=== PATIENT | female | born 1980 | race Two or more races ===

== ENCOUNTER 2023-06-22 02:02 | Emergency (ER) | payer MEDICAID, OTHER ==
[~2023-06-22] VITALS: Ht 165.1 cm; Wt 56.8 kg
[2023-06-22] MEDS: SODIUM CHLORIDE 0.9% 1,000 ML IV ONE (02:41)
[2023-06-22 02:45] VITALS: BP 104/73; RESP 14
[2023-06-22 02:48] LABS: Basophils # (auto) 0 10 ^3/uL (0-0.2); Basophils % (auto) 0.9 % (0.0-2.0); Eosinophils # (auto) 0.1 10 ^3/uL (0-0.8); Eosinophils % (auto) 2.5 % (0.0-7.0); Hematocrit 37.5 % (36.0-46.0); Hemoglobin 12.3 g/dL (12.2-16.2); Lymphocytes # (auto) 1.5 10 ^3/uL (0.4-5.4); Lymphocytes % (auto) 33.5 % (10.0-50.0); Mean Corpuscular Hgb Conc. 32.9 g/dL (32.0-36.0); Mean Corpuscular Volume 85.3 fL (80.0-100.0); Monocytes # (auto) 0.5 10 ^3/uL (0-1.3); Monocytes % (auto) 10.6 % (0.0-12.0); Neutrophils # (auto) 2.4 10 ^3/uL (1.6-8.6); Neutrophils % (auto) 52.5 % (37.0-80.0); White Blood Cell 4.6 10^3/uL (4.4-10.8)
[2023-06-22 02:52] VITALS: PULSE 72; O2SAT 99
[2023-06-22 02:57] LABS: Chloride 109 mmol/L (98-107); Potassium 3.3 mmol/L (3.5-5.1); Sodium 141 mmol/L (136-145)
[2023-06-22 02:58] LABS: Anion Gap 7 (5-15); Calcium 8.7 mg/dL (8.7-10.4); Carbon Dioxide 25 mmol/L (20-30)
[2023-06-22 03:03] LABS: BUN/Creatinine Ratio 10.3 (10.0-20.0); Blood Urea Nitrogen 6 mg/dL (9-23); Glucose 94 mg/dL (74-106)
== END 2023-06-22 03:50 | disposition home or self-care (01) ==
LOC: EDBD 02:02 → ER 02:02
DX: R55 Syncope and collapse (principal); R10.2 Pelvic and perineal pain; I95.9 Hypotension, unspecified; R42 Dizziness and giddiness; Z86.73 Personal history of transient ischemic attack (TIA), and cerebral infarction without residual deficits
CPT/HCPCS: 36415; 80048; 84702; 85025; 93005; 96360; 99284; J7030

== ENCOUNTER 2023-11-19 12:56 | Emergency (ER) | payer MEDICAID ==
[~2023-11-19] VITALS: Ht 165.1 cm; Wt 94.3 kg
[2023-11-19 13:21] VITALS: BP 121/76; PULSE 100; RESP 17; O2SAT 97
[2023-11-19] MEDS: TETANUS-DIPTH-ACEL PERTUSSIS 0.5ML SYR Tdap IM ONE (14:25)
== END 2023-11-19 14:32 | disposition home or self-care (01) ==
LOC: ER 12:56
DX: S01.112A Laceration without foreign body of left eyelid and periocular area, initial encounter (principal); Z86.73 Personal history of transient ischemic attack (TIA), and cerebral infarction without residual deficits; W10.8XXA Fall (on) (from) other stairs and steps, initial encounter; Y93.89 Activity, other specified; Y92.89 Other specified places as the place of occurrence of the external cause; Y99.8 Other external cause status
CPT/HCPCS: 12011; 90471; 90715

== ENCOUNTER 2023-11-26 08:32 | Emergency (ER) | payer MEDICAID ==
[~2023-11-26] VITALS: Ht 154.9 cm; Wt 59.6 kg
[2023-11-26 09:24] VITALS: BP 119/74; PULSE 91; RESP 17; TEMP 97.4; O2SAT 97
== END 2023-11-26 09:36 | disposition home or self-care (01) ==
LOC: ER 08:32
DX: S01.112D Laceration without foreign body of left eyelid and periocular area, subsequent encounter (principal); Z86.73 Personal history of transient ischemic attack (TIA), and cerebral infarction without residual deficits

== ENCOUNTER 2024-02-12 13:43 | Emergency (ER) | payer MEDICAID ==
[~2024-02-12] VITALS: Ht 165.1 cm; Wt 56.0 kg
--- NOTE | 2024-02-12 16:04 | ED.PDOC ---
HPI Comments A 43 YEAR OLD FEMALE PRESENTS TO THE ED WITH COMPLAINT OF LACERATION OF RIGHT THUMB. PATIENT STATES SHE WAS CUTTING VEGETABLES EARLIER TODAY AND SHE ACCIDENTALLY CUT HER RIGHT THUMB. BLEEDING IS CONTROLLED AT THIS TIME. PATIENT DENIES FEVER, CHILLS, SHORTNESS OF BREATH, CHEST PAIN, ABDOMINAL PAIN, NAUSEA, VOMITING, HEADACHE, OR OTHER COMPLAINTS. NO OTHER SYMPTOMS OR MODIFYING FACTORS AT THIS TIME. PATIENT IS ALERT, ORIENTED X 4, AND HAS STEADY GAIT. Chief Complaint: Laceration Time Seen by MD: 13:49 Primary Care Provider: UNKNOWN Reviewed Notes: Nurses Notes, Medications, Allergies Allergies: Coded Allergies: NO KNOWN ALLERGIES (Unverified , 06/22/23) Information Source: Patient Mode of Arrival: Ambulatory Severity: Moderate Severity of Laceration: Controlled Bleeding Complexity: Simple Timing: Hours Prehospital treatment: None Laceration Location: Digit #1 (RIGHT THUMB) Mechanism: Knife Last Tetanus: > 5 Years Laceration Length (cm): 2 Skin Type: Linear Depth of Injury: SQ Tendon Injury: 0% Capillary Refill: < 3 seconds Tender: Moderate Discharge: None Erythema: None Associated Signs and Symptoms: None Past Medical History PAST MEDICAL HISTORY: CVA Surgical History: Denies all surgeries 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 Family History Family History: Reviewed,noncontributory to illness Social History Smoker: Non-Smoker Alcohol: Denies ETOH Use Drugs: Denies Drug Use Lives In: Home Constitutional: denies: chills, diaphoresis, fatigue, fever, malaise, sweats, weakness, others EENTM: denies: blurred vision, double vision, ear bleeding, ear discharge, ear drainage, ear pain, ear ringing, eye pain, eye redness, hearing loss, mouth pain, mouth swelling, nasal discharge, nose bleeding, nose congestion, nose pain, photophobia, tearing, throat pain, throat swelling, voice changes, others Respiratory: denies: cough, hemoptysis, orthopnea, SOB at rest, shortness of breath, SOB with excertion, stridor, wheezing, others Cardiovascular: denies: chest pain, dizzy spells, diaphoresis, Dyspnea on exertion, edema, irregular heart beat, left arm pain, lightheadedness, palpitations, PND, syncope, others Gastrointestinal: denies: abdomen distended, abdominal pain, blood streaked bowels, constipated, diarrhea, dysphagia, difficulty swallowing, hematemesis, melena, nausea, poor appetite, poor fluid intake, rectal bleeding, rectal pain, vomiting, others Genitourinary: denies: abnormal vagina bleeding, burning, dyspareunia, dysuria, flank pain, frequency, hematuria, incontinence, pain, , vagina discharge, urgency, others Neurological: denies: dizziness, fainting, headache, left sided numbness, left sided weakness, numbness, paresthesia, pre-existing deficit, right sided numbness, right sided weakness, seizure, speech problems, tingling, tremors, weakness, others Musculoskeletal: denies: back pain, gout, joint pain, joint swelling, muscle pain, muscle stiffness, neck pain, others Integumetry: reports: laceration (LACERATION OF RIGHT THUMB); denies: bruises, change in color, change in hair/nails, dryness, lesions, lumps, rash, wounds, others Allergic/Immunocompromised: denies: Difficulty Healing, Frequent Infections, Hives, Itching, others Hematologic/Lymphatic: denies: anemia, blood clots, easy bleeding, easy bruising, swollen glands, others Endocrine: denies: excessive hunger, excessive sweating, excessive thirst, excessive urination, flushing, intolerance to cold, intolerance to heat, unexplained weight gain, unexplained weight loss, others Psychiatric: denies: anxiety, bipolar disorder, depression, hopeless, panic disorder, schizophrenia, sleepless, suicidal, others All Other Systems: Reviewed and Negative Physical Exam General Appearance: No Apparent Distress, Normal HEENT: Normal ENT Inspection, PERRL/EOMI, Pharynx Normal, TMs Normal Neck: Full Range of Motion, Non-Tender, Normal, Normal Inspection Respiratory: Chest Non-Tender, Lungs Clear, No Accessory Muscle Use, No Respiratory Distress, Normal Breath Sounds Cardiovascular: No Edema, No JVD, No Murmur, No Gallop, Normal Peripheral Pulses, Regular Rate/Rhythm Breast Exam: Deferred Gastrointestinal: No Organomegaly, Non Tender, No Pulsatile Mass, Normal Bowel Sounds, Soft Genitalia: Deferred Pelvic: Deferred Rectal: Deferred Extremities: No calf tenderness, Normal capillary refill, Normal range of motion, No pedal edema, Tender (AND LACERATION ON RIGHT THUMB, NO BONY TENDERNESS, SWELLING AND DEFORMITY. ) Musculoskeletal : Apperance: Normal Neurologic: Alert, nicu rn II-XII nml as Tested, No Motor Deficits, Normal Affect, Normal Mood, No Sensory Deficits Cerebellar Function: Normal Reflexes: Normal Skin: Dry, Lacerations (2CM LACERATION ON RIGHT VOLAR THUMB, NO BLEEDING AND FB, NEUROVASCULAR INTACT, NORMAL ROM. ), Normal Color, Warm Peripheral Pulses: 2+ carotid (R), 2+ carotid (L) Lymphatic: No Adenopathy Was a procedure done? Was a procedure done?: Yes Sedation Sedation?: No Laceration Repair : Location RIGHT THUMB Length 2CM Anesthetic: Lidocaine, Without epi Laceration Repair Prep: Saline, by Irrigation Laceration Repair Wound Comple: epidermis/dermis repair Laceration Repair: Number of sutures (5), SQ, Size (4-0 ETHILON), Nylon, Simple, Gauze Informed consent obtained: No Risks, benefits, and alternati: Yes Images 1 - Differential diagnosis Generic Laceration: Abrasion/Contusion, Laceration, Avulsion Differential Diagnosis: N/A X-Ray, Labs, Meds, VS Vital Signs Date Time Temp Pulse Resp B/P (MAP) Pulse Ox O2 Delivery O2 Flow Rate FiO2 02/12/24 16:12 96 18 98 Room Air* 0 21 02/12/24 16:12 98.5 96 18 115/82 (93) 98 98.5 02/12/24 13:44 98.5 96 18 115/82 (93) 98 X-Ray, Labs, Meds, VS Comment EXTERNAL NOTES: NONE LABS ORDERED: NONE REVIEWED AND INTERPRETED RESULTS: NONE IMAGING ORDERED: NONE INDEPENDENT HISTORIANS: PATIENT'S SON. TREATMENT: LACERATION REPAIR. SEE PROCEDURE SECTION. PATIENT'S CASE AND RESULTS HAVE BEEN DISCUSSED WITH THE ED ATTENDING PHYSICIAN AND THEY AGREE WITH MY PLAN OF CARE. I HAVE INSTRUCTED THE PATIENT TO FOLLOW UP WITH THEIR PCP IN 1-2 DAYS. THE PATIENT FULLY UNDERSTANDS THEIR RESULTS AND ARE AWARE THEY NEED TO FOLLOW UP WITH THEIR PCP FOR FURTHER EVALUATION IF THEIR SYMPTOMS PERSIST. Time of 1ST Reevaluation: 16:27 Reevaluation 1ST: Improved Patient Education/Counseling: Diagnosis, Treatment, Need For Follow Up Family Education/Counseling: Diagnosis, Treatment, Need For Follow Up Medical Screening: No EMC Exist At This Time Departure 1 Departure Time of Disposition: 16:30 Impression: Primary Impression: Laceration of right thumb Qualified Codes: S61.011A - Laceration without foreign body of right thumb without damage to nail, initial encounter Disposition: HOME / SELF CARE / HOMELESS Condition: Stable Additional Instructions: FOLLOW-UP WITH PCP IN 1 TO 2 DAYS. RETURN TO ED FOR ANY NEW OR WORSENING SYMPTOMS. Discharged With: Self, Relative Critical Care Note Critical Care Time?: No Stability Stability form required: No I personally scribed for JAYLAN RODRIGUEZ ([email or web address]) on 02/12/24 at 16:04. Electronically submitted by Kyle Alfaro ([email or web address]). I personally scribed for JAYLAN RODRIGUEZ ([email or web address]) on 02/12/24 at 16:12. Electronically submitted by Kyle Alfaro ([email or web address]). JAYLAN RODRIGUEZ Feb 12, 2024 16:04
[2024-02-12] MEDS: LIDOCAINE 1% HCL (LOCAL ANESTH.) INJ 20ML MDV IJ ONE (16:11)
[2024-02-12 16:12] VITALS: BP 115/82; PULSE 96; RESP 18; TEMP 98.5; O2SAT 98
== END 2024-02-12 16:29 | disposition home or self-care (01) ==
LOC: ER 13:43
DX: S61.011A Laceration without foreign body of right thumb without damage to nail, initial encounter (principal); Z86.73 Personal history of transient ischemic attack (TIA), and cerebral infarction without residual deficits; W45.8XXA Other foreign body or object entering through skin, initial encounter; Y93.89 Activity, other specified; Y92.89 Other specified places as the place of occurrence of the external cause; Y99.8 Other external cause status
CPT/HCPCS: 12001; 99282; J2003

== ENCOUNTER 2024-02-22 08:26 | Emergency (ER) | payer MEDICAID ==
[~2024-02-22] VITALS: Ht 157.5 cm; Wt 58.7 kg
--- NOTE | 2024-02-22 09:45 | ED.PDOC ---
History of Present Illness(SKN HPI Comments This is a pleasant 43-year-old female that presents for suture removals. No other complaint or concern. Denies any drainage redness tenderness to the affected side. 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 Family History Family History: Reviewed,noncontributory to illness Social History Smoker: Non-Smoker Alcohol: Denies ETOH Use Drugs: Denies Drug Use Lives In: Home All Other Systems: Reviewed and Negative (per hpi) Physical Exam General Appearance: No Apparent Distress, Normal HEENT: Normal ENT Inspection, Pharynx Normal, TMs Normal Neck: Full Range of Motion, Non-Tender, Normal, Normal Inspection Respiratory: Chest Non-Tender, Lungs Clear, No Accessory Muscle Use, No Res piratory Distress, Normal Breath Sounds Cardiovascular: No Edema, No JVD, No Murmur, No Gallop, Normal Peripheral Pulses, Regular Rate/Rhythm Breast Exam: Deferred Gastrointestinal: No Organomegaly, Non Tender, No Pulsatile Mass, Normal Bowel Sounds, Soft Genitalia: Deferred Pelvic: Deferred Rectal: Deferred Extremities: No calf tenderness, Normal capillary refill, Normal inspection, Normal range of motion, Non-tender, No pedal edema Musculoskeletal : Apperance: Normal Neurologic: Alert, foot tender II-XII nml as Tested, No Motor Deficits, Normal Affect, Normal Mood, No Sensory Deficits Cerebellar Function: Normal Reflexes: Normal Skin: Dry, Normal Color, Warm Lymphatic: No Adenopathy Was a procedure done? Was a procedure done?: No Differential Diagnosis (INTG) Differential Diagnosis: Other X-Ray, Labs, Meds, VS Vital Signs Date Time Temp Pulse Resp B/P (MAP) Pulse Ox O2 Delivery O2 Flow Rate FiO2 02/22/24 08:46 98.4 88 20 116/79 (91) 99 X-Ray, Labs, Meds, VS Comment Suture Removal Alcohol swab used to clean area thoroughly. Used sterile suture removal kit Clean, dry, intact. No discharge seen. Education provided to keep area clean and dry. If gets soiled, use soap and water to clean. Watch out for signs and symptoms of infection including fever, chills, yellow or green discharge, increased pain, swelling etc. Time of 1ST Reevaluation: 09:44 Reevaluation 1ST: Improved Patient Education/Counseling: Diagnosis, Treatment Family Education/Counseling: Diagnosis, Treatment Departure 1 Departure Time of Disposition: 09:45 Impression: Primary Impression: Encounter for removal of sutures Disposition: HOME / SELF CARE / HOMELESS Condition: Stable Discharged With: Self Critical Care Note Critical Care Time?: No Stability Stability form required: No Heart Score Heart Score: Heart Score Response (Comments) Value History N/A 0 EKG N/A 0 Age N/A 0 Risk Factors N/A 0 Troponin N/A 0 Total 0 ARNEL ADKINS NP Feb 22, 2024 09:45
[2024-02-22 09:49] VITALS: BP 118/78; PULSE 84; RESP 16; TEMP 98.2; O2SAT 98
== END 2024-02-22 09:55 | disposition home or self-care (01) ==
LOC: ER 08:26
DX: T14.8XXD Other injury of unspecified body region, subsequent encounter (principal); Z53.21 Procedure and treatment not carried out due to patient leaving prior to being seen by health care provider; X58.XXXD Exposure to other specified factors, subsequent encounter

== ENCOUNTER 2025-02-23 08:04 | Inpatient (IN) | payer MEDICAID ==
[2025-02-22 20:00] VITALS: PULSE 71
[~2025-02-23] VITALS: Ht 162.6 cm; Wt 62.0 kg
[2025-02-23 08:24] VITALS: PULSE 74; RESP 21; O2SAT 99
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
--- NOTE | 2025-02-23 08:54 | DVH ---
CLINICAL HISTORY: syncope TECHNIQUE: Helical scanning was performed of the head from the skull base to the vertex. Multiplanar reconstructions were performed. This exam was performed according to our departmental dose optimization program. Up-to-date CT equipment and radiation dose reduction techniques are utilized as appropriate. CTDI 50 DLP 808 COMPARISON: None FINDINGS: There is no evidence for acute intracranial hemorrhage, acute ischemic changes, mass, mass effect, or extra-axial fluid collection. There is no hydrocephalus or midline shift. There is no effacement of the cerebral sulci and basal subarachnoid cisterns. The chan-white matter differentiation is well maintained. There has been right frontoparietal temporal craniotomy with moderate area of subjacent encephalomalacia. The imaged paranasal sinuses are clear. IMPRESSION: No acute intracranial abnormality seen. Right frontoparietal temporal craniotomy with moderate area of subjacent encephalomalacia.
--- NOTE | 2025-02-23 09:10 | DVH ---
CLINICAL HISTORY: syncope TECHNIQUE: Single view of the chest was obtained. COMPARISON: None FINDINGS: The heart size and pulmonary vasculature are normal. The lungs are clear. IMPRESSION: NO ACUTE CARDIOPULMONARY PROCESS.
[2025-02-23 09:59] LABS: Hematocrit 44.6 % (36.0-46.0); Hemoglobin 14.9 g/dL (12.2-16.2); Mean Corpuscular Hemoglobin 28.3 pg (28.0-32.0); Mean Corpuscular Volume 84.8 fL (80.0-100.0); Nucleated Red Blood Cells % 0.0 %
[2025-02-23 10:06] LABS: Chloride 106 mmol/L (98-107); Potassium 3.7 mmol/L (3.5-5.1); Sodium 141 mmol/L (136-145)
[2025-02-23 10:07] LABS: Anion Gap 10 (5-15); Carbon Dioxide 25 mmol/L (20-31)
[2025-02-23 10:08] LABS: Calcium 9.4 mg/dL (8.7-10.4)
[2025-02-23 10:12] LABS: Glucose 86 mg/dL (74-106)
[2025-02-23 10:13] LABS: BUN/Creatinine Ratio 13.6 (10.0-20.0); Blood Urea Nitrogen 8 mg/dL (9-23)
[2025-02-23] MEDS: SODIUM CHLORIDE 0.9% 1,000 ML IV SCH (13:20)
[2025-02-23 16:01] VITALS: BP 100/70; PULSE 67; RESP 18; TEMP 97.9; O2SAT 99
[2025-02-23] MEDS ORDERED: CYCL-611 PO (16:34)
[2025-02-23] MEDS ORDERED: OXCA600T3 PO (16:34)
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
[2025-02-23 20:00] VITALS: PULSE 71
[2025-02-23 20:15] LABS: INR 1.06 (0.9-1.15); Partial Thromboplastin Time 26.2 SEC (24.5-34.5); Prothrombin Time 11.2 sec (9.3-11.8)
[2025-02-23] MEDS: ENOXAPARIN SOD 40 MG/0.4 ML SYRINGE SC ONE (20:32)
[2025-02-23 21:00] VITALS: BP 114/75; PULSE 69; RESP 19; TEMP 97.9; O2SAT 98
[2025-02-24] VITALS (9 sets, daily range): BP systolic 98–113; BP diastolic 61–74; PULSE 66–85; RESP 17–20; TEMP 97.1–99; O2SAT 92–100
[2025-02-24 06:15] LABS: Hematocrit 37.5 % (36.0-46.0); Hemoglobin 12.9 g/dL (12.2-16.2); Mean Corpuscular Hemoglobin 28.6 pg (28.0-32.0); Mean Corpuscular Volume 83.3 fL (80.0-100.0); Nucleated Red Blood Cells % 0.0 %
[2025-02-24 06:31] LABS: Albumin 3.6 g/dL (3.2-4.8); Alkaline Phosphatase 53 U/L (46-116); Anion Gap 8 (5-15); BUN/Creatinine Ratio 22.4 (10.0-20.0); Blood Urea Nitrogen 11 mg/dL (9-23); Carbon Dioxide 25 mmol/L (20-31); Glucose 89 mg/dL (74-106); Potassium 3.7 mmol/L (3.5-5.1); Sodium 141 mmol/L (136-145); Total Protein 6.1 g/dL (5.7-8.2)
[2025-02-24 06:32] LABS: Bilirubin, Total 0.6 mg/dL (0.2-1.0)
[2025-02-24 06:33] LABS: Alanine Aminotransferase < 9 U/L (7-40); Calcium 8.4 mg/dL (8.7-10.4); Chloride 108 mmol/L (98-107)
[2025-02-24 06:40] LABS: Urine Protein, UAD 1+ (Negative)
[2025-02-24 06:51] LABS: Amphetamine Screen, Urine Neg (NEGATIVE); Barbiturate Scree,Urine Neg (NEGATIVE); Benzodiazephine Screen, Urine Neg (NEGATIVE); Cannabinoid Screen, Urine Neg (NEGATIVE); Cocaine Screen, Urine Neg (NEGATIVE); Opiate Scree,Urine Neg (NEGATIVE); Phencyclidine Screen, Urine Neg (NEGATIVE)
[2025-02-24] MEDS: ENOXAPARIN SOD 40 MG/0.4 ML SYRINGE SC SCH (09:15)
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
[2025-02-24] MEDS ORDERED: LORazepam 2MG/ML-1ML VIAL IV PRN (10:45)
[2025-02-24] MEDS: ACETAMINOPHEN 325 MG TAB PO PRN (16:56)
[2025-02-25] VITALS (8 sets, daily range): BP systolic 94–111; BP diastolic 54–74; PULSE 67–83; RESP 17–20; TEMP 97.3–99.1; O2SAT 96–99
--- NOTE | 2025-02-25 01:04 | DVHSR ---
APPROVED REPORT EXAM: LIMITED Two-dimensional and M-mode echocardiogram with Doppler and color Doppler. Blood Pressure: 101/63 mmHg INDICATION presyncope RISK FACTORS Height: 5'4, Weight: 134 Stroke DIMENSIONS LVDd 3.7 (3.8-5.7cm) LA (2D) (1.9-4.0cm) Aortic Root 2.8 (2.0-3.7cm) LVDs 2.5 (2.5-4.0cm) LA (MM) (1.9-4.0cm) Aortic Cusp Exc 1.6 (1.5-2.0cm) EF (%) 60.0 (55-70%) Rt. Atrium (1.9-4.0cm) Asc. Aorta 2.5 cm IVSd 0.8 (0.7-1.1cm) RV (D) (1.8-2.4cm) PWd 0.9 (0.7-1.1cm) Mitral Valve Mitral Mitral Stenosis E wave 0.69m/s MV Mean GR. mmHg A wave 0.51m/s MV Peak GR. mmHg E/A ratio 1.4 2D MVA cm2 DECEL Time 205ms PRESS 1/2 Time ms Aortic Valve Aortic Valve Aortic Stenosis V1 0.80m/s AO Mean GR. 2mmHg V2 1.00m/s AO Peak GR. 4mmHg LVOT Diameter 1.7 (1.8-2.4cm) Doppler CATHY 1.81cm2 Pulmonic Valve V2 0.78m/s Other Information Quality : Limited Rhythm : Technically limited study due to body habitus.patient position. Conclusion LV EF IS 65% DYSKINESIS OF IVS SLIGHTLY DILATED RV AND RA NORMAL VALVES NO EFFUSION
[2025-02-25 08:52] LABS: Hematocrit 37.4 % (36.0-46.0); Hemoglobin 12.5 g/dL (12.2-16.2); Mean Corpuscular Hemoglobin 28.4 pg (28.0-32.0); Mean Corpuscular Volume 84.9 fL (80.0-100.0); Nucleated Red Blood Cells % 0.1 %
[2025-02-25 09:03] LABS: Albumin 3.7 g/dL (3.2-4.8); Alkaline Phosphatase 56 U/L (46-116); Anion Gap 8 (5-15); Calcium 8.7 mg/dL (8.7-10.4); Carbon Dioxide 25 mmol/L (20-31); Glucose 87 mg/dL (74-106); Potassium 3.7 mmol/L (3.5-5.1); Sodium 142 mmol/L (136-145); Total Protein 6.3 g/dL (5.7-8.2)
[2025-02-25 09:04] LABS: Alanine Aminotransferase < 9 U/L (7-40); BUN/Creatinine Ratio 10.4 (10.0-20.0); Bilirubin, Total 0.5 mg/dL (0.2-1.0); Blood Urea Nitrogen < 5 mg/dL (9-23); Chloride 109 mmol/L (98-107)
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
[2025-02-26] VITALS (7 sets, daily range): BP systolic 108–127; BP diastolic 75–84; PULSE 64–76; RESP 16–18; TEMP 98–98.4; O2SAT 97–99
--- NOTE | 2025-02-26 10:45 | ECG ---
[facility] Test Date: 2025-02-23 Test Time: 08:02:02 Pat Name: MARY LANDIN Department: ED Room: 0291T B Gender: F Fisher Diving: JOSE L : 1980 Requested By: CEFERINO BETANCOURT Order Number: [id number] Reading MD: Fidencio Smith Measurements Intervals [place] Rate: 70 P: 77 VA: 250 QRS: 113 QRSD: 83 T: 79 QT: 399 QTc: 431 Interpretive Statements Sinus rhythm Prolonged VA interval Left atrial enlargement Left posterior fascicular block Low voltage, precordial leads Nonspecific T abnrm, anterolateral leads ST elev, probable normal early repol pattern Electronically Signed On 03-01-2025 8:25:38 PST by Fidencio Smith Please click the below link to view image of tracing.
--- NOTE | 2025-02-26 10:45 | ECG ---
[facility] Test Date: 2025-02-23 Test Time: 09:24:48 Pat Name: MARY LANDIN Department: ED Room: 0291T B Gender: F Marketing Officer: JOSE L : 1980 Requested By: CEFERINO BETANCOURT Order Number: [id number] Reading MD: Fidencio Smith Measurements Intervals [place] Rate: 69 P: 62 AZ: 222 QRS: 110 QRSD: 79 T: 78 QT: 409 QTc: 438 Interpretive Statements Sinus rhythm Prolonged AZ interval Left posterior fascicular block ST elev, probable normal early repol pattern Electronically Signed On 03-01-2025 8:27:43 PST by Fidencio Smith Please click the below link to view image of tracing.
[2025-02-26] MEDS ORDERED: CEPH250C PO (15:16)
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
== END 2025-02-26 17:30 | disposition home or self-care (01) | DRG 204 ==
LOC: EDBD 08:04 → ER 08:04 → OVERFLOW 12:20 → TELE-WESTW 15:34
PROVIDERS: ADMIT Student in an Organized Health Care Education/Training Program; ATTEND Student in an Organized Health Care Education/Training Program
DX: I95.1 Orthostatic hypotension (principal); R56.9 Unspecified convulsions; G93.89 Other specified disorders of brain; N39.0 Urinary tract infection, site not specified; I69.354 Hemiplegia and hemiparesis following cerebral infarction affecting left non-dominant side; A09 Infectious gastroenteritis and colitis, unspecified; E86.9 Volume depletion, unspecified; Z79.899 Other long term (current) drug therapy; R31.9 Hematuria, unspecified
CPT/HCPCS: 36415; 70450; 71045; 80048; 80053; 80307; 81001; 82270; 82607; 82746; 83880; 84443; 84484; 85025; 85048; 85379; 85610; 85730; 87086; 93005; 93306; 99291; G0378